=== PATIENT | female | born 1965 | race Two or more races ===

== ENCOUNTER 2018-05-01 09:51 | Emergency (ER) | payer BC ==
[~2018-05-01] VITALS: Ht 165.1 cm; Wt 74.8 kg
[2018-05-01] MEDS ORDERED: PROMETHAZINE W473 ML PO (14:37)
[2018-05-01] MEDS ORDERED: TESSALON PERLE100 M1 PO (14:37)
== END 2018-05-01 15:22 | disposition home or self-care (01) ==
LOC: ER 09:51
DX: J40 Bronchitis, not specified as acute or chronic (principal)